=== PATIENT | female | born 1950 | race Caucasian/White ===

== ENCOUNTER 2019-09-24 00:55 | Inpatient (IN) | payer MEDICARE, MEDICAID ==
[~2019-09-24] VITALS: Ht 157.4 cm; Wt 81.6 kg
[2019-09-24] MEDS ORDERED: LEVOTHYROXINE100 MC1 PO (01:16)
[2019-09-24] MEDS ORDERED: OMEPRAZOLE20 M2 PO (01:22)
[2019-09-24] MEDS ORDERED: COZAAR50 M1 PO (01:24)
[2019-09-24] MEDS ORDERED: PRISTIQ50 MG PO (01:25)
[2019-09-24] MEDS ORDERED: RISPERIDONE0.25 M2 PO (01:26)
[2019-09-24] MEDS ORDERED: ABILIFY15 MG PO (01:28)
[2019-09-24] MEDS ORDERED: LAMICTAL100 MG PO (01:41)
[2019-09-24 04:12] VITALS: BP 144/76
[2019-09-24 06:25] LABS: BASO # 0.1 10*3/uL (0.0-0.1); BASO % 0.7 % (0.0-1.0); EOS # 0.3 10*3/uL (0.0-0.4); HEMATOCRIT 45.6 % (37.0-47.0); LYMPH # 1.7 10*3/uL (1.3-4.4); LYMPH % 20.6 % (27.0-41.0); MEAN CELL VOLUME 91.4 fl (81.0-99.0); MEAN CORPUSCULAR HGB 30.1 pg (27.0-31.0); MEAN CORPUSCULAR HGB CONC 32.9 g/dl (33.0-37.0); MONO # 0.4 10*3/uL (0.1-1.0); MONO % 5.1 % (3.0-9.0); NEUT # 5.5 10*3/uL (2.3-7.9); NEUT % 68.7 % (47.0-73.0); PLATELET COUNT AUTOMATED 250 10*3/uL (130-400); RED BLOOD COUNT 4.99 10*6/uL (4.10-5.10); RED CELL DISTRI WIDTH 12.7 % (0-14.5)
[2019-09-24 06:54] LABS: ALBUMIN 4.1 gm/dl (3.1-4.5); ALKALINE PHOSPHATASE 83 U/L (45-117); BUN 8 mg/dl (7-24); CHLORIDE 103 mmol/L (98-107); CHOLESTEROL 174 mg/dL (<200); CREATININE 0.71 mg/dL (0.55-1.02); HDL CHOLESTEROL 52 mg/dl (40-60); LDL CHOLESTEROL 105 mg/dL (9-159); POTASSIUM 3.8 mmol/L (3.5-5.1); SGOT/AST 12 IU/L (3-35); SGPT/ALT 35 U/L (12-78); SODIUM 136 mmol/L (136-145); TOTAL PROTEIN 7.7 gm/dL (6.4-8.2); TRIGLYCERIDES 85 mg/dl (<150); VLDL CHOLESTEROL 17 mg/dL (6-40)
[2019-09-24 08:00] VITALS: BP 150/62
[2019-09-24 08:03] LABS: VITAMIN D, 25-HYDROXY 18.3 ng/mL (30-100)
[2019-09-24 17:16] LABS: BILIRUBIN NEGATIVE (NEGATIVE); BLOOD TRACE-LYSED (NEGATIVE); CLARITY SL CLOUDY (CLEAR); COLOR YELLOW (YELLOW); GLUCOSE NEGATIVE (NEGATIVE); KETONE NEGATIVE (NEGATIVE); NITRITE NEGATIVE (NEGATIVE); PH 7.5 (5.0-9.0); UROBILINOGEN 0.2 E.U./dl (0.2-1.0)
[2019-09-24 17:17] LABS: LEUKO ESTERASE 3+ (NEGATIVE); WBC 51-100 wbc/hpf (0-5)
[2019-09-24 17:18] LABS: BACTERIA 3+
[2019-09-24 19:58] VITALS: BP 148/68
[2019-09-25 08:00] VITALS: BP 152/88
[2019-09-25 20:00] VITALS: BP 150/88
[2019-09-26 07:56] VITALS: BP 119/81
[2019-09-26 20:00] VITALS: BP 134/78
[2019-09-27 07:52] VITALS: BP 134/76
[2019-09-27 19:59] VITALS: BP 128/74
[2019-09-28 07:38] VITALS: BP 127/76
[2019-09-28 20:00] VITALS: BP 122/74
[2019-09-29 07:36] VITALS: BP 136/80
[2019-09-29 20:00] VITALS: BP 150/98
[2019-09-30 08:00] VITALS: BP 142/88
[2019-09-30 20:00] VITALS: BP 121/72
[2019-10-01 08:00] VITALS: BP 132/84
[2019-10-01 20:00] VITALS: BP 112/72
[2019-10-02 07:49] VITALS: BP 122/73
[2019-10-02 20:00] VITALS: BP 136/89
[2019-10-03 07:33] VITALS: BP 125/79
[2019-10-03 20:00] VITALS: BP 109/62
[2019-10-04 08:00] VITALS: BP 126/88
[2019-10-04] MEDS ORDERED: QUETIAPINE FUMA25 MG PO (10:43)
[2019-10-04] MEDS ORDERED: RIVASTIGMINE TAR3 M1 PO (10:43)
[2019-10-04] MEDS ORDERED: HYDROXYZINE HCL25 MG PO (10:43)
[2019-10-04] MEDS ORDERED: QUETIAPINE FUM100 M3 PO (10:43)
[2019-10-04] MEDS ORDERED: VITAMIN D3125 MC1 PO (10:43)
[2019-10-04] MEDS ORDERED: MIRTAZAPINE15 M2 PO (10:43)
[2019-10-04 19:10] VITALS: BP 130/79
[2019-10-05 07:31] VITALS: BP 120/68
[2019-10-05] MEDS ORDERED: PHARMASSURE V500 MCG PO (11:22)
== END 2019-10-05 13:13 | disposition home or self-care (01) | DRG 885 ==
LOC: 3N 00:55
PROVIDERS: Registered Nurse; ADMIT Psychiatry & Neurology Psychiatry
DX: F31.30 Bipolar disorder, current episode depressed, mild or moderate severity, unspecified (principal); E03.9 Hypothyroidism, unspecified; K21.9 Gastro-esophageal reflux disease without esophagitis; I10 Essential (primary) hypertension; F43.10 Post-traumatic stress disorder, unspecified; Z88.0 Allergy status to penicillin; Z82.49 Family history of ischemic heart disease and other diseases of the circulatory system; Z82.3 Family history of stroke; Z87.891 Personal history of nicotine dependence; Z98.51 Tubal ligation status